=== PATIENT | male | born 1995 | race African-American/Black ===

== ENCOUNTER 2016-09-09 03:24 | Emergency (ER) | payer OTHER ==
[~2016-09-09] VITALS: Ht 182.9 cm; Wt 85.0 kg
[2016-09-09 03:30] VITALS: BP 158/91; PULSE 109; RESP 18; TEMP 98.6; O2SAT 97
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
[2016-09-09] MEDS ORDERED: LIDOCAINE 1%/EPINEPHrine 1:100,000 SOLN 20 ML VIAL INFIL ONE (03:45)
[2016-09-09] MEDS ORDERED: TETANUS/DIPHTHERIA TOXOID ADULT 0.5 ML VIAL IM ONE (03:45)
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
== END 2016-09-09 05:45 ==
LOC: NEPD 03:24
DX: S01.81XA Laceration without foreign body of other part of head, initial encounter (principal); F10.120 Alcohol abuse with intoxication, uncomplicated; Z23 Encounter for immunization; Z72.0 Tobacco use; Y35.893A Legal intervention involving other specified means, suspect injured, initial encounter; Y93.9 Activity, unspecified; Y92.9 Unspecified place or not applicable; Y99.9 Unspecified external cause status
CPT/HCPCS: 12011; 70486; 90471; 90714

== ENCOUNTER 2016-09-17 07:52 | Emergency (ER) | payer SELFPAY ==
[~2016-09-17] VITALS: Ht 182.9 cm; Wt 81.5 kg
[2016-09-17 07:54] VITALS: BP 142/84; PULSE 73; RESP 18; TEMP 97.9; O2SAT 100
[2016-09-17] MEDS ORDERED: MUPI2%T TOPICAL (08:19)
[2016-09-17] MEDS ORDERED: IBUP800T23 PO (08:19)
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
== END 2016-09-17 08:27 | disposition home or self-care (01) ==
LOC: NEPK 07:52
DX: S80.212D Abrasion, left knee, subsequent encounter (principal); S80.211D Abrasion, right knee, subsequent encounter; S50.312D Abrasion of left elbow, subsequent encounter; S50.311D Abrasion of right elbow, subsequent encounter; S00.81XD Abrasion of other part of head, subsequent encounter; J45.909 Unspecified asthma, uncomplicated; Z72.0 Tobacco use; Y35.93XD Legal intervention, means unspecified, suspect injured, subsequent encounter
CPT/HCPCS: 99283